=== PATIENT | female | born 1965 ===

== ENCOUNTER 2018-05-07 17:17 | Emergency (ER) | payer BC ==
[2018-05-07 17:25] VITALS: BP 101/75; PULSE 101; RESP 20; TEMP 98.2; O2SAT 96
--- NOTE | 2018-05-07 19:14 | ED PDOC ---
HPI: Influenza Time Seen by Provider: 05/07/18 18:24 Chief Complaint: Flu-like Symptoms Chief Complaint (Provider): Flu-like Symptoms History Per: Patient Exam Limitations: no limitations Have you had recent travel within the past 21 days to any of: No Symptoms include: fever, headache, bodyaches, cough, diarrhea. denies: nasal congestion, vomiting, chest pain, difficulty breathing, blurry vision Additional complaint(s):: 53 y/o female presents to the ED for an evaluation of body ache, mild frontal headache, fever and cough onset today. Patient reports two weeks ago, she had cough but no fever. She visited her doctor and received antibiotics, feeling better. Yesterday, patient reports she had cough, high fever and headache. She states the headache is similar to her migraines in the past. Patient also had diarrhea today. She took Robitussin prior to arrival. Otherwise, she denies nausea, vomiting, chest pain, shortness of breath, abdominal pain, nasal conge stion, neck pain, vision problem, weakness, numbness, tingling, urinary or stool incontinence. Also denies any tingling or numbness in her hands in the ED. PMD: unknown provider Past Medical History Reviewed: Historical Data, Nursing Documentation, Vital Signs Vital Signs: Last Vital Signs Temp 98.2 F 05/07/18 17:23 Pulse 101 H 05/07/18 17:23 Resp 20 05/07/18 17:23 BP 101/75 05/07/18 17:23 Pulse Ox 96 05/07/18 17:23 - Medical History PMH: No Chronic Diseases - Family History Family History: States: Unknown Family Hx - Social History Current smoker - smoking cessation education provided: No Alcohol: None Drugs: Denies - Home Medications Home Medications: Ambulatory Orders Medication Instructions Recorded Benzonatate [Tessalon Perles] 100 mg PO BID PRN 5 Days sgl 05/07/18 Ibuprofen [Motrin] 600 mg PO TID 7 Days tab 05/07/18 Oseltamivir Phosphate [Tamiflu] 75 mg PO BID 5 Days capsule 05/07/18 - Allergies Allergies/Adverse Reactions: Allergies Allergy/AdvReac Type Severity Reaction Status Date / Time No Known Allergies Allergy Verified 05/07/18 17:22 Review of Systems ROS Statement: Except As Marked, All Systems Reviewed And Found Negative Constitutional: Positive for: Fever, Other (body ache) Eyes: Negative for: Vision Change ENT: Negative for: Nose Congestion Cardiovascular: Negative for: Chest Pain Respiratory: Positive for: Cough. Negative for: Shortness of Breath Gastrointestinal: Positive for: Diarrhea. Negative for: Nausea, Vomiting, Abdominal Pain Genitourinary Female: Negative for: Dysuria, Frequency, Incontinence Neurological: Positive for: Headache (mild) Physical Exam - Reviewed Nursing Documentation Reviewed: Yes Vital Signs Reviewed: Yes - Physical Exam Appears: Positive for: Non-toxic, No Acute Distress Head Exam: Positive for: ATRAUMATIC, NORMAL INSPECTION, NORMOCEPHALIC Skin: Positive for: Normal Color, Warm, Dry. Negative for: Rash Eye Exam: Positive for: EOMI, Normal appearance, PERRL ENT: Positive for: Normal ENT Inspection Neck: Positive for: Normal, Painless ROM, Supple. Negative for: Decreased ROM Cardiovascular/Chest: Positive for: Regular Rate, Rhythm. Negative for: Murmur Respiratory: Positive for: Normal Breath Sounds. Negative for: Decreased Breath Sounds, Wheezing, Respiratory Distress Gastrointestinal/Abdominal: Positive for: Normal Exam, Soft. Negative for: Tenderness Back: Positive for: Other (mild tenderness on lower back) Extremity: Positive for: Normal ROM. Negative for: Tenderness, Pedal Edema, Deformity Neurologic/Psych: Positive for: Alert, Oriented (x3), Gait (steady). Negative for: Motor/Sensory Deficits Medical Decision Making Medical Decision Making: Time: 1844 Plan: ED urine Ibuprofen 600mg Benzonatate 100mg Influenza A B Reevaluation ------- Scribe Attestation: Documented by Ceci Conti, acting as a scribe for Maurice Lott MD Provider Scribe Attestation: All medical record entries made by the Scribe were at my direction and personally dictated by me. I have reviewed the chart and agree that the record accurately reflects my personal performance of the history, physical exam, medical decision making, and the department course for this patient. I have also personally directed, reviewed, and agree with the discharge instructions and disposition. - ECG O2 Sat by Pulse Oximetry: 96 (RA) Pulse Ox Interpretation: Normal - Progress ED Course And Treament: 2100: Stable. AAOx3. Pain free. Tolerated PO. FU with pcp. Disposition - Clinical Impression Clinical Impression: Influenza - Patient ED Disposition Is Patient to be Admitted: Yes Counseled Patient/Family Regarding: Studies Performed, Diagnosis, Need For Followup, Rx Given - Disposition Referrals: [facility] [place] [Outside] - 05/09/18 Disposition: Routine/Home Disposition Time: 21:14 Condition: STABLE Additional Instructions: Return if not better in 3 days. Prescriptions: Benzonatate [Tessalon Perles] 100 mg PO BID PRN 5 Days sgl PRN Reason: Cough Ibuprofen [Motrin] 600 mg PO TID 7 Days tab Oseltamivir Phosphate [Tamiflu] 75 mg PO BID 5 Days capsule Instructions: Flu, Adult (DC) Print Language: GUAMANIAN
== END 2018-05-07 21:40 | disposition home or self-care (01) ==
LOC: H.ER 17:17
DX: J11.1 Influenza due to unidentified influenza virus with other respiratory manifestations (principal)